=== PATIENT | male | born 1970 | race Caucasian/White ===

== ENCOUNTER → 2016-10-01 | Outpatient (CLI) | payer BC ==
--- NOTE | 2016-10-01 10:50 | MR ---
MRI of the brain with and without contrast HISTORY: Headaches. TECHNIQUE: T1-weighted sagittal, T2, FLAIR, and diffusion axial, postcontrast T1 axial and coronal vi ews of the brain are submitted. CONTRAST: 20 mL MultiHance FINDINGS: There is no evidence of acute ischemia. The ventricles, basal cisterns, and sulci overlying the co nvexities are consistent with the patient's age. There is no mass effect or enhancing mass. Craniocervical junction maintained. Sella turcica has a normal appearance. No evidence of cerebellopo ntine angle mass. Changes of chronic sinusitis noted. Vascular structures enhance normally including the dural venous sinuses. WHITE MATTER: There are approximately 10 areas of abnormal signal scattered throughout the white matter bilaterally . No lesions perpendicular to the ventricular system. No enhancing lesions. No callosal lesions. IMPRESSION: 1. No acute intracranial process. 2. Mild nonspecific white matter changes can be seen with migraine headaches or hypertension. Remote microvascular ischemia, demyelinating disease, sarcoidosis or other etiologies not entirely excluded correlate clinically.
== END | disposition home or self-care (01) ==
LOC: RADMRIMAIN 08:08
PROVIDERS: ATTEND Psychiatry & Neurology Neurology
DX: D49.6 Neoplasm of unspecified behavior of brain (principal); G40.909 Epilepsy, unspecified, not intractable, without status epilepticus
CPT/HCPCS: 70553; A9577

== ENCOUNTER 2016-10-26 08:59 | Day surgery (SDC) | payer BC ==
[2016-10-25 10:11] VITALS: BMI 37.3
[2016-10-26 09:12] VITALS: PULSE 68; RESP 20; TEMP 98.6
[2016-10-26] MEDS: SODIUM CHLORIDE 0.9% 1,000 ML IV SCH ×2 (10:28→11:18)
[2016-10-26 11:36] VITALS: BP 140/86
--- NOTE | 2016-10-26 18:14 | P.PCN ---
Preoperative Diagnosis: Twelve-lead ECG report Sinus rhythm heart rate 63 beats a minute narrow QRS normal ST segments Tilt table test report Baseline blood pressure 1:30/75 mmHg, Baseline heart rate 63 beats a minute. Patient was tilted upright at night was 70 per protocol is no change in started her blood pressure at the end of the procedure he was laid supine Impression Normal heart rate and blood pressure response to upright tilting Anesthesia: none Condition: stable Disposition: same day
== END 2016-10-26 11:36 | disposition home or self-care (01) ==
LOC: CATHEP 08:59
PROVIDERS: ATTEND Internal Medicine Clinical Cardiac Electrophysiology
DX: R55 Syncope and collapse (principal); E78.5 Hyperlipidemia, unspecified; Z79.899 Other long term (current) drug therapy
CPT/HCPCS: 93005; 93660

== ENCOUNTER → 2021-04-23 | Outpatient (CLI) | payer BC ==
--- NOTE | 2021-04-23 13:04 | CONS ---
CONSULTATION DATE OF SERVICE: 04/23/2021 This 50-year-old gentleman has been re-evaluated in Sleep Center for obstructive sleep apnea-hypopnea syndrome. HISTORY OF PRESENT ILLNESS/SLEEP-WAKE EVALUATION: I saw this patient in 2010. At that time he was diagnosed with obstructive sleep apnea- hypopnea syndrome in severe range with apnea-hypopnea index 36. He was started on treatment with CPAP, and since that time the patient continued to use his CPAP equipment. For these years, patient's weight has significantly increased by about 37 pounds. While using the machine he occasionally has snoring. 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 On regular days it is from 10 or 11 p.m. until until 4:30 a.m. No problems with falling asleep. No TV in bedroom. He usually does not wake up from sleep if he is sleeps with his CPAP unit. Recently he was not using the CPAP equipment every night because, as already mentioned above, he started to snore with the machine. No history of hypnagogic hallucinations, sleep paralysis or cataplexy. During the day, the patient feels sleepy. [place] Sleepiness Scale increased to 11. PAST MEDICAL HISTORY: Positive for seasonal allergies, hyperlipidemia. PAST SURGICAL HISTORY: Vasectomy. MEDICATIONS: Mostly [id number], aspirin, Motrin. SOCIAL HISTORY: Negative for smoking or using alcohol or the present time. FAMILY HISTORY: Positive for diabetes and hyperlipidemia. REVIEW OF SYSTEMS: No fevers. No double vision. No recent chest pain. No shortness of breath. No abdominal pain. No bleeding episodes. No blood in the urine. No seizure episodes. Snoring while using CPAP equipment. PHYSICAL EXAMINATION: GENERAL: Pleasant patient in no distress. VITAL SIGNS: BP 156/93, HR 79, RR 15, height 6 feet 0 inches, weight 267.2, body mass index 36.3, temperature 97.7, oxygen saturation at room air 99%. HEENT: PERRLA, EOMI, evaluation of oropharynx showed tongue protrudes midline. Extremely low position of soft palate; Mallampati IV. NECK: Supple, no JVD. Thyroid is not palpable. Neck measures 18 inches in circumference. LUNGS: Clear to percussion and to auscultation. Good air exchange. No wheezing or rhonchi. HEART: S1, S2 regular. No murmurs, gallops, or rubs. ABDOMEN: Slightly obese. EXTREMITIES: No clubbing or cyanosis. BOAT LOADER: Awake, alert, and oriented X3. Cranial nerves 2 to 7 intact. There is no fasciculation or atrophy. noted. No focal deficits observed. I checked the patient's CPAP unit. Usage for the last month is 8/30 nights. CPAP pressure is 9 cm of water. Apnea-hypopnea index reading for the 7 days 5.9. IMPRESSION: 1. Obstructive sleep apnea-hypopnea syndrome by results of sleep study which was done in our institution in 2010. Apnea-hypopnea index at that time was 36 with oxygen desaturation to 82%. At present while using CPAP equipment, he snores. CPAP unit is more than 10 years old. 2. Obesity. BMI 36.3. 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 4. Seasonal allergies. 5. Hyperlipidemia. 6. Status post vasectomy. PLAN: 1. I changed the pressure in his CPAP unit up to 12 cm of water. 2. Prescription for new automatic CPAP unit with range of pressure 5 to 13, Rizo FX medium-sized nasal pillow mask. 3. Sleep hygiene with regular time in bed for 7-1/2 to 8 hours. 4. No driving if feeling any sleepiness. 5. Watching and losing weight. 6. I will see the patient for follow-up visit in about 4-6 weeks to evaluate clinical response on treatment with the new CPAP unit, compliance with treatment, and to make any necessary adjustments related to mask fitting, pressure and humidification. Thank you very much for referring this patient for consultation. Sincerely, Calvin Browning MD, PhD, FAASM Diplomat of [place] [employer] Sleep Medicine Board of [place] [employer] Ecommerce Project Manager of [facility] [place] MMODL / IJN: [id number] /
== END ==
LOC: SLEEP 10:44
PROVIDERS: ATTEND Internal Medicine
DX: G47.33 Obstructive sleep apnea (adult) (pediatric) (principal); G47.36 Sleep related hypoventilation in conditions classified elsewhere; E66.9 Obesity, unspecified; E78.5 Hyperlipidemia, unspecified; Z68.36 Body mass index [BMI] 36.0-36.9, adult; Z99.89 Dependence on other enabling machines and devices; J30.2 Other seasonal allergic rhinitis; Z98.52 Vasectomy status
CPT/HCPCS: 99202

== ENCOUNTER → 2021-08-26 | Outpatient (CLI) | payer BC ==
--- NOTE | 2021-08-26 20:45 | SFUN ---
SLEEP CENTER FOLLOW UP NOTE DATE OF SERVICE: 08/26/2021 This 50-year-old gentleman has been followed in Sleep Center for treatment of obstructive sleep apnea-hypopnea syndrome. Today is his first visit after he received his new CPAP unit. The patient likes his CPAP machine. It works well for him. No significant problems related to mask fitting, pressure or humidification. [place] Sleepiness Scale today is 5, which is normal. The patient is using the machine practically every night, but some nights because of his difficult schedule he just does not sleep enough hours. I checked his CPAP unit. Usage is 26/30 nights and 9 nights for more than 4 hours. Range of the pressure is 5 to 14, average pressure 10 or 11 cm of water. Leak is 18.8 L/minute, 95%. Apnea-hypopnea index is 1.5 which is absolutely normal. MEDICATIONS: Aspirin, Motrin as necessary. PHYSICAL EXAMINATION: GENERAL: Pleasant patient in no distress. VITAL SIGNS: BP 129/84, HR 78, RR 16, weight 281.0, temperature 97.4, oxygen saturation at room air 97%. HEENT: PERRLA, EOMI, evaluation of oropharynx showed tongue protrudes midline. Extremely low position of soft palate; Mallampati IV. NECK: Supple, no JVD. Thyroid is not palpable. LUNGS: Clear to percussion and to auscultation. Good air exchange. No wheezing or rhonchi. HEART: S1, S2 regular. No murmurs, gallops, or rubs. ABDOMEN: Slightly obese. EXTREMITIES: No clubbing or cyanosis. COMBAT SYSTEMS OPERATOR: Awake, alert, and oriented X3. Cranial nerves 2 to 7 intact. There is no fasciculation or atrophy. noted. No focal deficits observed. IMPRESSION: 1. Obstructive sleep apnea-hypopnea syndrome. The patient demonstrated borderline compliance with treatment. Normal respiration on CPAP. 2. Obesity. 3. Seasonal allergies. 4. Hyperlipidemia. 5. Status post vasectomy. PLAN: 1. Patient will continue to use PAP equipment every night for the whole night. 2. Sleep hygiene with regular time in bed for at least 7-1/2 to 8 hours. 3. Precautions related to driving. No driving if feeling sleepiness. 4. I will maintain all necessary prescription for PAP supplies including mask, tube, filters. 5. Watching weight. 6. Follow-up visit in 6 months or earlier if patient has any problems. Thank you very much for allowing me to participate in the management of your patient. Sincerely, Calvin Browning MD, PhD, FAASM Diplomat of [place] [employer] Sleep Medicine Board of [place] [employer] Medicine Bar Machine Operator of [facility] [place] MMTANA / GEN: [id number] /
== END ==
LOC: SLEEP 14:37
PROVIDERS: ATTEND Internal Medicine
DX: G47.33 Obstructive sleep apnea (adult) (pediatric) (principal); E66.9 Obesity, unspecified; E78.5 Hyperlipidemia, unspecified; J30.2 Other seasonal allergic rhinitis; Z99.89 Dependence on other enabling machines and devices; Z98.52 Vasectomy status

== ENCOUNTER → 2022-02-24 | Outpatient (CLI) | payer BC ==
--- NOTE | 2022-02-24 14:56 | P.PN ---
Subjective DATE: 02/24/2022 FOLLOW UP VISIT. Patient with obstructive sleep apnea hypopnea syndrome return to sleep center for follow-up visit. Information from previous visit have been reviewed. 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 Patient is using PAP equipment every night for the whole night, getting PAP supplies in time. The patient does not have significant problems with the mask, PAP unit and humidification. [place] sleepiness scale is 6. I checked information from PAP unit. PAP unit pressure 514, average 10.4 cm H2O. Usage is 90 % for more then 4 hours, average 5.2 hours per night. Leak is 25 l/m, which is in acceptable range. Apnea Hypopnea Index is 0.7, which is normal. MEDICATIONS:1. Aspirin 2. Motrin if necessary During physical exam: GENERAL: A pleasant patient without any distress. VITAL SIGNS: BP 161/75, HR 63, RR 16, weight 268.2, patient lost 13 pounds since previous visit, temperature 97.5, oxygen saturation at room air 99 % . HEENT: PERRLA, EOMI.low position of soft palate, Mallapati 4 . NECK: Supple. No JVD. LUNGS: Clear to percussion and to auscultation. Good air exchange. No wheezing or rhonchi. HEART: S1, S2 regular. ABDOMEN: Soft and nontender. Obese EXTREMITIES: No clubbing or cyanosis. FILTER FILLER: Awake, alert, and oriented x3. No focal deficit. Impressions: 1. Obstructive sleep apnea-hypopnea syndrome. Patient demonstrated great compliance with treatment, benefiting from treatment. 2. Obesity patient lost 13 pounds since previous visit. 3. Seasonal ALLERGY. 4. Hyperlipidemia.. 5. Status post was ectomy. Plan: 1. Continue using PAP equipment every night for the whole night. 2. To change air filter at least 1-2 times per month. 3. PAP unit should stay lower then position of the head. 4. Advised patient to remove all remaining water from humidifier canister daily and make it dry after each usage. Refill canister with fresh distilled water before each usage. 5. Sleep hygiene with regular time in bed for at least 8 hours. 6. Precautions related to driving. No driving if feel any sleepiness. 7. I will maintain prescription for PAP supplies including mask, tube, filters. 8. Follow up visit in 6 months or earlier if patient has any problems. 9. Continue losing weight. Thank you very much for allowing me to participate in the management of your patient. Calvin Browning MD, PhD, FAASM. Diplomat of [place] [employer] Medicine, Sleep Medicine Board by [place] [employer] Fisher Scallop of [facility] [place]
== END | disposition home or self-care (01) ==
LOC: SLEEP 14:27
PROVIDERS: ATTEND Internal Medicine
DX: G47.33 Obstructive sleep apnea (adult) (pediatric) (principal); E66.9 Obesity, unspecified; J30.2 Other seasonal allergic rhinitis; E78.5 Hyperlipidemia, unspecified; Z98.890 Other specified postprocedural states

== ENCOUNTER → 2023-03-30 | Outpatient (CLI) | payer BC ==
--- NOTE | 2023-03-30 16:53 | P.PN ---
Subjective DATE: 03/30/2023 FOLLOW UP VISIT. Patient with obstructive sleep apnea hypopnea syndrome return to sleep center for follow-up visit. Information from previous visit have been reviewed. Patient is using PAP equipment every night for the whole night, getting PAP supplies in time. The patient does not have significant problems with the mask, PAP unit and humidification. [place] sleepiness scale is, which is normal. I checked information from PAP unit. PAP unit pressure 5-14, average 9.7 cm H2O. Usage is 25 out of 30 nights, average 3 hours per night. Apnea Hypopnea Index is 1.0, which is normal. MEDICATIONS:1. Medications for ALLERGY 2. Vitamins During physical exam: GENERAL: A pleasant patient without any distress. VITAL SIGNS: BP 163/87[], HR 65, RR 16 , weight 261.2, temperature 98.4, oxygen saturation at room air 97 % . HEENT: PERRLA, EOMI.low position of soft palate, Mallapati 4 . NECK: Supple. No JVD. LUNGS: Clear to percussion and to auscultation. Good air exchange. No wheezing or rhonchi. HEART: S1, S2 regular. ABDOMEN: Soft and nontender.[] EXTREMITIES: No clubbing or cyanosis. LATIN AMERICAN STUDIES DIRECTOR: Awake, alert, and oriented x3. No focal deficit. Impressions: 1. Obstructive sleep apnea-hypopnea syndrome. Normal respiration on CPAP. 2. History of obesity, patient lost 17 pounds since previous visit. 3. Hyperlipidemia. 4. Back problems. 5. Seasonal ALLERGY. 6. Status post vasectomy. Plan: 1. Continue using PAP equipment every night for the whole night. 2. To change air filter at least 1-2 times per month. 3. PAP unit should stay lower then position of the head. 4. Advised patient to remove all remaining water from humidifier canister daily and make it dry after each usage. Refill canister with fresh distilled water before each usage. 5. Sleep hygiene with regular time in bed for at least 8 hours. 6. Precautions related to driving. No driving if feel any sleepiness. 7. I will maintain prescription for PAP supplies including mask, tube, filters. 8. Follow up visit in 6 months or earlier if patient has any problems. 9. Watching weight. Thank you very much for allowing me to participate in the management of your patient. Calvin Browning MD, PhD, FAASM. Diplomat of [place] Board [employer] Medicine, Sleep Medicine Board by [place] Board of [employer] Medicine Media Relations Coordinator of [facility] [place]
== END ==
LOC: 3 N SLEEP 16:20
PROVIDERS: ATTEND Internal Medicine
DX: G47.33 Obstructive sleep apnea (adult) (pediatric) (principal); E66.9 Obesity, unspecified; E78.5 Hyperlipidemia, unspecified; J30.2 Other seasonal allergic rhinitis; M54.9 Dorsalgia, unspecified; Z98.52 Vasectomy status; Z99.89 Dependence on other enabling machines and devices
CPT/HCPCS: 99212

== ENCOUNTER → 2023-10-13 | Outpatient (CLI) | payer BC ==
--- NOTE | 2023-10-13 16:36 | P.PN ---
Subjective DATE: 10/13/2023 FOLLOW UP VISIT. Patient with obstructive sleep apnea hypopnea syndrome return to sleep center for follow-up visit. Information from previous visit have been reviewed. Patient is using PAP equipment every night for the whole night, getting PAP supplies in time. The patient does not have significant problems with the mask, PAP unit and humidification. [place] sleepiness scale is 4, which is normal. I checked information from PAP unit. PAP unit pressure 5-14, average 10.1 cm H2O. Usage is 80% for more then 4 hours, average 4.1 hours per night. Leak is 23 l/m, which is in acceptable range. Apnea Hypopnea Index is 1.8, which is normal. MEDICATIONS: None at the present time During physical exam: GENERAL: A pleasant patient without any distress. VITAL SIGNS: Please see below . HEENT: [place], EOMI.low position of soft palate, Mallapati[] . NECK: Supple. No JVD. LUNGS: Clear to percussion and to auscultation. Good air exchange. No wheezing or rhonchi. HEART: S1, S2 regular. ABDOMEN: Soft and nontender.[] EXTREMITIES: No clubbing or cyanosis. GIANT TIRE REPAIRER: Awake, alert, and oriented x3. No focal deficit. Impressions: 1. Obstructive sleep apnea-hypopnea syndrome. Patient demonstrated borderline compliance with treatment, benefiting from treatment. 2. Blood pressure slightly increased in the office today. 3. Usual sleep time is short. 4. Back problems. 5. History of hyperlipidemia. 6. Seasonal allergy. 7. Status post vasectomy. 8. Mild obesity with a body mass index 35.4, patient increased his weight on 15 pounds comparing with previous visit. Plan: 1. Continue using PAP equipment every night for the whole night. 2. To change air filter at least 1-2 times per month. 3. PAP unit should stay lower then position of the head. 4. Advised patient to remove all remaining water from humidifier canister daily and make it dry after each usage. Refill canister with fresh distilled water before each usage. 5. Sleep hygiene with regular time in bed for at least 8 hours. 6. Precautions related to driving. No driving if feel any sleepiness. 7. I will maintain prescription for PAP supplies including mask, tube, filters. 8. Watching and losing weight. 9. Follow up visit in 6 months or earlier if patient has any problems. Thank you very much for allowing me to participate in the management of your patient. Calvin Browning MD, PhD, FAASM. Diplomat of [place] [employer] Medicine, Sleep Medicine Board by [place] [employer] Medicine Household Personal Assistant of [facility] [place] Objective - Vital Signs Vital signs: Vital Signs Temp 98.1 F 10/13/23 16:22 Pulse 62 10/13/23 16:22 Resp 16 10/13/23 16:22 BP 143/80 10/13/23 16:22 Pulse Ox 97 10/13/23 16:22 FiO2 Intake & Output 10/12/23 10/13/23 10/13/23 18:59 06:59 18:59 Weight 125.191 kg
[2023-10-13 16:41] VITALS: BP 143/80; PULSE 62; RESP 16; TEMP 98.1
== END | disposition home or self-care (01) ==
LOC: 3 N SLEEP 16:04
PROVIDERS: ATTEND Internal Medicine
DX: G47.33 Obstructive sleep apnea (adult) (pediatric) (principal); I10 Essential (primary) hypertension; G47.8 Other sleep disorders; M54.50 Low back pain, unspecified; E78.5 Hyperlipidemia, unspecified; E66.9 Obesity, unspecified; Z68.35 Body mass index [BMI] 35.0-35.9, adult; Z99.89 Dependence on other enabling machines and devices; Z98.52 Vasectomy status
CPT/HCPCS: 99212

== ENCOUNTER → 2024-06-20 | Outpatient (CLI) | payer BC ==
[2024-06-20 16:56] VITALS: BP 149/83; PULSE 65; RESP 18; TEMP 98.1
--- NOTE | 2024-06-20 17:18 | P.PROGSL ---
Subjective DATE: [] FOLLOW UP VISIT. Patient with obstructive sleep apnea hypopnea syndrome return to sleep center for follow-up visit. Information from previous visit have been reviewed. Patient is using PAP equipment every night for the whole night, getting PAP supplies in time. The patient does not have significant problems with the mask, PAP unit and humidification. [place] sleepiness scale is 5, which is normal. I checked information from PAP unit. PAP unit pressure 5-14, average 11.4 cm H2O. Usage is 90% for more then 4 hours, average 4 hours per night. Leak is 20 l/m, which is in acceptable range. Apnea Hypopnea Index is 1.5, which is normal. MEDICATIONS have been reviewed, please see below. During physical exam: GENERAL: A pleasant patient without any distress. VITAL SIGNS: Please see below, weight is 180.2 lbs. HEENT: PERRLA, EOMI.low position of soft palate, Mallapati 3. NECK: Supple. No JVD. LUNGS: Clear to percussion and to auscultation. Good air exchange. No wheezing or rhonchi. HEART: S1, S2 regular. ABDOMEN: Soft and nontender. Obese EXTREMITIES: No clubbing or cyanosis. FINAL ASSEMBLER BOAT: Awake, alert, and oriented x3. No focal deficit. Impressions: 1. Obstructive sleep apnea-hypopnea syndrome. Patient demonstrated great compliance with treatment, benefiting from treatment. 2. Obesity, BMI 38.8. 3. Increased blood pressure in the office. 4. History of hyperlipidemia. 5. Back problems. 6. Seasonal allergy. 7. Status post vasectomy. Plan: 1. Continue using PAP equipment every night for the whole night. 2. Sleep hygiene with regular time in bed for at least 7.5-8 hours 3. PAP unit should stay lower then position of the head. 4. Advised patient to remove all remaining water from humidifier canister daily and make it dry after each usage. Refill canister with fresh distilled water before each usage. 5. Watching and losing weight. 6. Precautions related to driving. No driving if feel any sleepiness. 7. I will maintain prescription for PAP supplies including mask, tube, filters. 8. Follow up visit in 8 months or earlier if patient has any problems. Thank you very much for allowing me to participate in the management of your patient. Calvin Browning MD, PhD, FAASM. Diplomat of [place] [employer] Sleep Medicine, Sleep Medicine Board by [place] [employer] Field Kiln Burner of [facility] [place] Objective - Vital Signs Vital Signs: Vital Signs Temp 98.1 F 06/20/24 16:55 Pulse 65 06/20/24 16:55 Resp 18 06/20/24 16:55 BP 149/83 06/20/24 16:55 Pulse Ox 95 06/20/24 16:55 FiO2 Intake & Output 06/19/24 06/20/24 06/20/24 18:59 06:59 18:59 Weight 127.063 kg
== END ==
LOC: 3 N SLEEP 16:38
PROVIDERS: ATTEND Internal Medicine
DX: G47.33 Obstructive sleep apnea (adult) (pediatric) (principal); E66.9 Obesity, unspecified; R03.0 Elevated blood-pressure reading, without diagnosis of hypertension; M53.9 Dorsopathy, unspecified; J30.2 Other seasonal allergic rhinitis; Z98.52 Vasectomy status; Z99.89 Dependence on other enabling machines and devices; Z86.39 Personal history of other endocrine, nutritional and metabolic disease; Z68.38 Body mass index [BMI] 38.0-38.9, adult
CPT/HCPCS: 99212